=== PATIENT | female | born 1990 | race Caucasian/White ===

== ENCOUNTER → 2016-06-18 | Outpatient (CLI) | payer OTHER ==
[~2016-06-18] MED LIST: AMPH10TA2 PO; ATEN-173 PO; BCPILLS PO; CIPR-255 PO; CIPR0.3S OP; LAMO1TAB PO; LINA72CA PO; LITH300T2 PO; LTHSR/300 PO; MISCCAP80 PO; MTR600X PO; NORGTAB39 PO; ONDA4TAB10 SL; OXYC-57 PO; OXYC-643 PO; OXYC1TAB3 PO; OXYC5TAB PO; SACC250C11; SERT-234 PO; SPR28 PO; TOPI100T20 PO; TRAZ50TA35 PO
--- NOTE | 2016-06-18 15:02 | DIAGNOSTIC IMAGING REPORT ---
LUMBAR SPINE MRI HISTORY: LOW BACK PAIN TECHNIQUE: Multiplanar multisequence MRI of the lumbar spine was performed without the use of contrast. COMPARISON: None. FINDINGS: For the purpose of the report the L5-S1 disc space will be located on axial image 23 of 25. 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 Alignment is intact. No fractures identified. There is disc desiccation at L4-L5 and L5-S1 with mild disc space narrowing at L5-S1. The conus terminates at the L1 level. Mild facet degenerative changes at L4-5 and L5-S1. L1-L2: No significant central canal or neural foraminal narrowing. L2-L3: No significant central canal or neural foraminal narrowing. L3-L4: Small broad-based posterior disc bulge asymmetric to the left without significant central canal or neural foraminal narrowing. L4-L5: Small broad-based posterior disc bulge with a focal central annular tear. In conjunction with the facet hypertrophy this results in minimal central canal narrowing. No significant neural foraminal narrowing. L5-S1: Small right paracentral focal disc protrusion which abuts the transiting right S1 nerve root. This measures 8 x 5 mm. No significant central canal narrowing. Moderate left and mild right neural foraminal narrowing due to the disc bulge and facet hypertrophy. IMPRESSION: 1. Small right paracentral focal disc protrusion at L5-S1 which abuts but does not displace the transiting right S1 nerve root. There is also moderate left and mild right neural foraminal narrowing at this level. 2. Small broad-based posterior disc bulge at L4-5 with a focal central annular tear. This results in minimal central canal narrowing. 3. There is a 4.5 cm right adnexal lesion/cyst. This is likely ovarian. Follow-up pelvic ultrasound in 6-8 weeks is recommended to ensure resolution. 4. Mild levoscoliosis. Electronically signed by: Gary Peres M.D. 06/18/2016 3:01 PM Dictated Date/Time: 06/18/2016 2:52 PM
== END | disposition home or self-care (01) ==
LOC: C.MRI 13:40
PROVIDERS: ATTEND Obstetrics & Gynecology
DX: M54.42 Lumbago with sciatica, left side (principal); R93.8 Abnormal findings on diagnostic imaging of other specified body structures

== ENCOUNTER 2016-09-28 11:10 | Emergency (ER) | payer OTHER ==
[~2016-09-28] VITALS: Ht 167.6 cm; Wt 77.0 kg
[~2016-09-28 11:10] MED LIST changes: -BCPILLS PO; -CIPR-255 PO; -CIPR0.3S OP; -LINA72CA PO; -LTHSR/300 PO; -MISCCAP80 PO; -ONDA4TAB10 SL; -OXYC-57 PO; -OXYC-643 PO; -OXYC1TAB3 PO; -OXYC5TAB PO; -SACC250C11; -SPR28 PO; -TRAZ50TA35 PO
[2016-09-28 11:13] VITALS: TEMP 36.9; Ht 167.6 cm; Wt 77.0 kg
[2016-09-28] MEDS ORDERED: SODIUM CHLORIDE 0.9% 1000ML 1,000 ML IV STA ×2 (11:25→14:09)
[2016-09-28] MEDS ORDERED: KETOROLAC TROMETHAMINE 30 MG/ML VIAL IV STA (11:25)
[2016-09-28] MEDS ORDERED: ONDANSETRON INJ 2 MG/ML 2 ML VIAL IV STA (11:25)
--- NOTE | 2016-09-28 11:34 | EMERGENCY ROOM VISIT NOTE ---
History Report prepared by Ofelia: Milton Moreira Under the Supervision of: Dr. Roldan Sandoval D.O. First contact with patient: 11:19 Chief Complaint: VOMITING Stated Complaint: DIZZY,VOMITING,PAIN L SIDE History of Present Illness The patient is a 26 year old female who presents to the Emergency Room with complaints of waxing and waning left lower quadrant abdominal pain that the patient began three days prior to arrival. She describes the pain as a "cramping " sensation and claims that it radiates into her back. The patient also notes that she has been dizzy and nauseous over the past three days and has vomited multiple times. She states that she has been drinking increased fluids recently , and has not been urinating much at all. She has not noticed any unusual urine coloration when she has urinated. The patient has a history of ovarian cysts and ruptured ovaries. The right ruptured ovary was surgically repaired. The patient also has a history of bipolar disorder and Tourette's syndrome. She also had a cholecystectomy. 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 A total of 10 systems reviewed and were otherwise negative. Past Medical & Surgical Medical Problems: (1) Hemoperitoneum (2) Hemorrhage of right ovary (3) Ovarian cyst Family History Cancer Heart disease Kidney disease Kidney stones Seizures Social History Smoking Status: Never Smoker Drug Use: none Marital Status: single Occupation Status: student Current/Historical Medications Scheduled Amphetamine-Dextroamphetamine 10MG (Adderall 10MG), 10 MG PO QAM Atenolol (Tenormin), 25 MG PO QPM Ciprofloxacin Hcl (Cipro), 500 MG PO BID Lamotrigine (Lamictal Xr), 300 MG PO HS Deltana Carbonate (Deltana Carbonate), 900 MG PO HS Norgestimate-Ethinyl Estradiol (Ortho Tri-Cyclen Lo), 1 TAB PO DAILY Ondasetron Odt (Zofran Odt), 4 MG SL Q6H Sertraline (Zoloft), 100 MG PO HS Topiramate (Topamax), 100 MG PO HS Scheduled PRN Ibuprofen (Ibuprofen), 600 MG PO Q6H PRN for Pain Oxycodone Immediate Rel Tab (Roxicodone Ir), 1 TAB PO Q4H PRN for Severe Pain Allergies Coded Allergies: Amoxicillin (Verified Allergy, Unknown, rash, 09/28/16) Penicillins (Verified Allergy, Unknown, rash, 09/28/16) Sulfa Antibiotics (Verified Allergy, Unknown, rash, 09/28/16) Physical Exam Vital Signs Date Time Temp Pulse Resp B/P Pulse Ox O2 Delivery O2 Flow Rate FiO2 09/28/16 15:00 71 18 94/52 97 Room Air 09/28/16 14:23 107/60 09/28/16 14:08 73 18 81/42 96 Room Air 09/28/16 11:13 36.9 68 18 102/64 100 Room Air Physical Exam GENERAL: Patient is awake, alert, and in no acute distress. Patient is resting comfortably and showing no signs of anxiety EYES: The conjunctivae are clear. The pupils are round and reactive. EARS, NOSE, MOUTH AND THROAT: The nose is without any evidence of any deformity. Mucous membranes are moist tongue is midline NECK: The neck is nontender and supple. RESPIRATORY: Normal respiratory effort is noted there is no evidence of wheezing rhonchi or rales CARDIOVASCULAR: Regular rate and rhythm noted there no murmurs rubs or gallops normal S1 normal S2 GASTROINTESTINAL: The abdomen is soft. Bowel sounds are present in all quadrants. There is left lower quadrant tenderness to palpation. BACK: No midline tenderness or or step-off noted range of motion in flexion extension as well as rotation no signs of muscle spasm noted MUSCULOSKELETAL/EXTREMITIES: There is no evidence of gross deformity full range of motion is noted in the hips and shoulders SKIN: There is no obvious evidence of any rash. There are no petechiae, pallor or cyanosis noted. NEUROLOGIC: Patient is awake alert and oriented x3 strength is symmetric patellar reflexes are 2+ bilaterally Medical Decision & Procedures ER Provider Diagnostic Interpretation: Radiology results as stated below per my review and radiologist interpretation: KUB CLINICAL HISTORY: Abdominal pain and vomiting. COMPARISON STUDY: None. FINDINGS: There are cholecystectomy clips. The bowel gas pattern is normal. A few pelvic calcifications are indeterminate although statistically reflect phleboliths. IMPRESSION: No evidence of a bowel obstruction. Electronically signed by: Jan Gaming M.D. 09/28/2016 12:10 PM Dictated Date/Time: 09/28/2016 12:10 PM PELVIC ULTRASOUND CLINICAL HISTORY: Abdominal pain, nausea and vomiting. COMPARISON STUDY: Pelvic ultrasound February 16, 2016. TECHNIQUE: Transabdominal and transvaginal sonography of the pelvis was performed. FINDINGS: The uterus measures 7.7 x 5 x 3.4 cm and the endometrium measures 5 mm in thickness. There are no uterine abnormalities. The right ovary measures 4.7 x 5.3 x 2.5 cm and contains a 3.3 cm cyst. The left ovary measures 3 x 2.4 x 2.9 cm. Color flow is identified within each ovary. There was a small amount of fluid within the pelvis. IMPRESSION: 1. 3.3 cm right ovarian cyst. No sonographic evidence of ovarian torsion. 2. Normal sonographic appearance of the left ovary and uterus. 3. Small amount of fluid within the pelvis. Electronically signed by: Jan Gaming M.D. 09/28/2016 1:55 PM Dictated Date/Time: 09/28/2016 1:53 PM RENAL ULTRASONOGRAPHY CLINICAL HISTORY: Left flank pain. COMPARISON STUDY: No previous studies for comparison. FINDINGS: The right kidney measured 12.9 cm in length. The left kidney measures 11.6 cm in length. Both kidneys demonstrate increased echogenicity, a nonspecific finding suggesting medical renal disease. Please correlate with renal function tests. There is no hydronephrosis. No renal masses are visualized. No bladder masses are visualized. Bilateral renal jets were visualized. IMPRESSION: 1. No evidence of hydronephrosis. 2. No renal masses identified 3. Increased renal cortical echogenicity, a nonspecific finding suggesting medical renal disease Electronically signed by: Sha Powell M.D. 09/28/2016 1:53 PM Dictated Date/Time: 09/28/2016 1:52 PM Laboratory Results 09/28/16 11:32 Red Blood Count 4.70, Mean Corpuscular Volume 93.4, Mean Corpuscular Hemoglobin 30.2, Mean Corpuscular Hemoglobin Concent 32.3, Mean Platelet Volume 10.5, Neutrophils (%) (Auto) 71.4, Lymphocytes (%) (Auto) 19.0, Monocytes (%) (Auto) 6.1, Eosinophils (%) (Auto) 2.6, Basophils (%) (Auto) 0.6, Neutrophils # (Auto) 10.18, Lymphocytes # (Auto) 2.70, Monocytes # (Auto) 0.87, Eosinophils # (Auto) 0.37, Basophils # (Auto) 0.08 09/28/16 11:32 Test 09/28/16 11:32 09/28/16 11:40 White Blood Count 14.24 K/uL (4.8-10.8) Red Blood Count 4.70 M/uL (4.2-5.4) Hemoglobin 14.2 g/dL (12.0-16.0) Hematocrit 43.9 % (37-47) Mean Corpuscular Volume 93.4 fL (80-100) Mean Corpuscular Hemoglobin 30.2 pg (25-34) Mean Corpuscular Hemoglobin Concent 32.3 g/dl (32-36) Platelet Count 346 K/uL (130-400) Mean Platelet Volume 10.5 fL (7.4-10.4) Neutrophils (%) (Auto) 71.4 % Lymphocytes (%) (Auto) 19.0 % Monocytes (%) (Auto) 6.1 % Eosinophils (%) (Auto) 2.6 % Basophils (%) (Auto) 0.6 % Neutrophils # (Auto) 10.18 K/uL (1.4-6.5) Lymphocytes # (Auto) 2.70 K/uL (1.2-3.4) Monocytes # (Auto) 0.87 K/uL (0.11-0.59) Eosinophils # (Auto) 0.37 K/uL (0-0.5) Basophils # (Auto) 0.08 K/uL (0-0.2) RDW Standard Deviation 46.1 fL (36.4-46.3) RDW Coefficient of Variation 13.3 % (11.5-14.5) Immature Granulocyte % (Auto) 0.3 % Immature Granulocyte # (Auto) 0.04 K/uL (0.00-0.02) Anion Gap 6.0 mmol/L (3-11) Est Creatinine Clear Calc Drug Dose 87.7 ml/min Estimated GFR () 88.8 Estimated GFR (Non- 76.6 BUN/Creatinine Ratio 10.6 (10-20) Calcium Level 9.2 mg/dl (8.5-10.1) Total Bilirubin 0.2 mg/dl (0.2-1) Direct Bilirubin < 0.1 mg/dl (0-0.2) Aspartate Amino Transf (AST/SGOT) 6 U/L (15-37) Alanine Aminotransferase (ALT/SGPT) 12 U/L (12-78) Alkaline Phosphatase 48 U/L (45-117) Total Protein 7.2 gm/dl (6.4-8.2) Albumin 3.5 gm/dl (3.4-5.0) Lipase 218 U/L (73-393) Deltana Level 1.0 mMOL/L (0.6-1.2) Urine Color YELLOW Urine Appearance CLEAR (CLEAR) Urine pH 7.0 (4.5-7.5) Urine Specific [place] 1.013 (1.000-1.030) Urine Protein NEG (NEG) Urine Glucose (UA) NEG (NEG) Urine Ketones NEG (NEG) Urine Occult Blood NEG (NEG) Urine Nitrite NEG (NEG) Urine Bilirubin NEG (NEG) Urine Urobilinogen NEG (NEG) Urine Leukocyte Esterase MODERATE (NEG) Urine WBC (Auto) 10-30 /hpf (0-5) Urine RBC (Auto) 0-4 /hpf (0-4) Urine Hyaline Casts (Auto) 1-5 /lpf (0-5) Urine Epithelial Cells (Auto) >30 /lpf (0-5) Urine Bacteria (Auto) 1+ (NEG) Urine Test NEG (NEG) Laboratory results per my review. Medications Administered Medications (Trade) Dose Ordered Sig/Hailey Route Start Time Stop Time Status Last Admin Dose Admin Ketorolac Tromethamine 30 mg 30 mg NOW STAT IV 09/28/16 11:25 09/28/16 11:26 DC 09/28/16 11:34 30 MG Sodium Chloride (Nss 1000ml) 1,000 ml @ 999 mls/hr Q1H1M STAT IV 09/28/16 11:25 09/28/16 12:25 DC 09/28/16 11:35 999 MLS/HR Ondansetron HCl 4 mg 4 mg NOW STAT IV 09/28/16 11:25 09/28/16 11:26 DC 09/28/16 11:34 4 MG Sodium Chloride (Nss 1000ml) 1,000 ml @ 999 mls/hr Q1H1M STAT IV 09/28/16 14:09 09/28/16 15:09 DC 09/28/16 14:09 999 MLS/HR Ciprofloxacin (Cipro Tab) 500 mg NOW STAT PO 09/28/16 14:37 09/28/16 14:38 DC 09/28/16 14:59 500 MG ED Course 1123: The patient was evaluated in room A12. A complete history and physical examination were performed. 1125: Ordered Zofran 4 mg IV, Sodium Chloride 1000 mL @ 999 mL/hr IV, Toradol 30 mg IV. 1235: I reevaluated the patient at this time. She notes that she is feeling dizzy now. 1409: Ordered Sodium Chloride 1000 mL @ 999 mL/hr IV. 1437: Ordered Ciprofloxacin 500 mg PO. 1443: Upon reevaluation, the patient is resting in bed. I discussed the results and treatment plan with her. She verbalized agreement of the treatment plan. The patient was discharged home. Medical Decision The patient's history was concerning for abdominal pain. Differential diagnosis: Etiologies such as appendicitis, diverticulitis, PUD, biliary pathology, UTI, pancreatitis, obstruction, mesenteric ischemia, aortic pathology, infections, inflammatory bowel disease, renal colic, as well as others were entertained. The patient is a 26-year-old female who presented to the emergency department for an evaluation of left-sided abdominal pain. The patient had significant left lower quadrant pain but she did not have specific guarding or rigidity. She was sent to the emergency department for possible ovarian cyst. I discussed the patient's laboratory and radiographic studies with her. Ultrasound did not show a definite left-sided abnormality but did show a right-sided ovarian cyst. She did not have a physical exam consistent with an acute surgical abdomen but did have an elevated white blood cell count as well as possible urinary tract infection. This reason she was started on antibiotic but a CT the abdomen and pelvis was obtained to ensure there was no other intra-abdominal infectious process. The patient was treated with IV fluids IV pain medicine and IV antiemetics. On subsequent reevaluation she was feeling much better. She was encouraged to rest and avoid any strenuous activity. She was encouraged to continue all medications as prescribed and follow-up with her primary care physician. Otherwise she was encouraged to return to the emergency apartment immediately if symptoms change worsen or the need arises. Impression Primary Impression: LLQ abdominal pain Additional Impressions: Ovarian cyst UTI (urinary tract infection) Scribe Attestation The scribe's documentation has been prepared under my direction and personally reviewed by me in its entirety. I confirm that the note above accurately reflects all work, treatment, procedures, and medical decision making performed by me. Departure Information Dispostion Home / Self-Care Prescriptions Oxycodone Immediate Rel Tab (ROXICODONE IR) 5 Mg Tab 1 TAB PO Q4H Y for Severe Pain, #20 TAB Prov: Roldan Sandoval, DO 09/28/16 Ondasetron Odt (ZOFRAN ODT) 4 Mg Tab 4 MG SL Q6H for Nausea, #20 TAB Prov: Roldan Sandoval, DO 09/28/16 Ciprofloxacin Hcl (CIPRO) 500 Mg Tab 500 MG PO BID, #14 TAB Prov: Roldan Sandoval, DO 09/28/16 Referrals No Doctor, Assigned (PCP) Forms HOME CARE DOCUMENTATION FORM, IMPORTANT VISIT INFORMATION Patient Instructions My [facility] Additional Instructions Call your family to schedule a follow-up appointment for this week. Drink plenty clear liquids. Avoid any strenuous activity. Continue all medications as prescribed. Continue using Motrin and Tylenol as directed for mild pain. Problem Qualifiers
[2016-09-28 11:55] LABS: HEMATOCRIT 43.9 % (37-47); MEAN CELL VOLUME 93.4 fL (80-100); MEAN CORPUSCULAR HEMOGLOBIN 30.2 pg (25-34); MEAN CORPUSCULAR HGB CONC 32.3 g/dl (32-36); MEAN PLATELET VOLUME 10.5 fL (7.4-10.4); PLATELET COUNT 346 K/uL (130-400); WHITE BLOOD COUNT 14.24 K/uL (4.8-10.8)
[2016-09-28 11:58] LABS: MANUAL MICROSCOPIC REQUIRED? NO; REVIEW REQ? NO; URINE APPEARANCE CLEAR (CLEAR); URINE BILIRUBIN NEG (NEG); URINE COLOR YELLOW; URINE EPITHELIAL CELL AUTO >30 /lpf (0-5); URINE NITRITE NEG (NEG); URINE SPECIFIC GRAVITY 1.013 (1.000-1.030); UROBILINOGEN NEG (NEG)
--- NOTE | 2016-09-28 12:12 | DIAGNOSTIC IMAGING REPORT ---
KUB CLINICAL HISTORY: Abdominal pain and vomiting. COMPARISON STUDY: None. FINDINGS: There are cholecystectomy clips. The bowel gas pattern is normal. A few pelvic calcifications are indeterminate although statistically reflect phleboliths. IMPRESSION: No evidence of a bowel obstruction. Electronically signed by: Jan Gaming M.D. 09/28/2016 12:10 PM Dictated Date/Time: 09/28/2016 12:10 PM
[2016-09-28 12:16] LABS: ALT/SGPT 12 U/L (12-78); AST/SGOT 6 U/L (15-37); BLOOD UREA NITROGEN 11 mg/dl (7-18); BUN/CREATININE RATIO 10.6 (10-20); CALCIUM 9.2 mg/dl (8.5-10.1); CARBON DIOXIDE 25 mmol/L (21-32); CHLORIDE 112 mmol/L (98-107); GLUCOSE 80 mg/dl (70-99); POTASSIUM 3.9 mmol/L (3.5-5.1); SODIUM 143 mmol/L (136-145)
[2016-09-28 12:17] LABS: BASO % 0.6 %; BASO ABS # 0.08 K/uL (0-0.2); COMPLETE YES; EOS % 2.6 %; IG% 0.3 %; MONO % 6.1 %; NEUT % 71.4 %
[2016-09-28 12:19] LABS: ALKALINE PHOSPHATASE 48 U/L (45-117)
--- NOTE | 2016-09-28 13:55 | DIAGNOSTIC IMAGING REPORT ---
RENAL ULTRASONOGRAPHY CLINICAL HISTORY: Left flank pain. COMPARISON STUDY: No previous studies for comparison. FINDINGS: The right kidney measured 12.9 cm in length. The left kidney measures 11.6 cm in length. Both kidneys demonstrate increased echogenicity, a nonspecific finding suggesting medical renal disease. Please correlate with renal function tests. There is no hydronephrosis. No renal masses are visualized. No bladder masses are visualized. Bilateral renal jets were visualized. IMPRESSION: 1. No evidence of hydronephrosis. 2. No renal masses identified 3. Increased renal cortical echogenicity, a nonspecific finding suggesting medical renal disease Electronically signed by: Sha Powell M.D. 09/28/2016 1:53 PM Dictated Date/Time: 09/28/2016 1:52 PM
--- NOTE | 2016-09-28 13:56 | DIAGNOSTIC IMAGING REPORT ---
PELVIC ULTRASOUND CLINICAL HISTORY: Abdominal pain, nausea and vomiting. COMPARISON STUDY: Pelvic ultrasound February 16, 2016. TECHNIQUE: Transabdominal and transvaginal sonography of the pelvis was performed. FINDINGS: The uterus measures 7.7 x 5 x 3.4 cm and the endometrium measures 5 mm in thickness. There are no uterine abnormalities. The right ovary measures 4.7 x 5.3 x 2.5 cm and contains a 3.3 cm cyst. The left ovary measures 3 x 2.4 x 2.9 cm. Color flow is identified within each ovary. There was a small amount of fluid within the pelvis. IMPRESSION: 1. 3.3 cm right ovarian cyst. No sonographic evidence of ovarian torsion. 2. Normal sonographic appearance of the left ovary and uterus. 3. Small amount of fluid within the pelvis. Electronically signed by: Jan Gaming M.D. 09/28/2016 1:55 PM Dictated Date/Time: 09/28/2016 1:53 PM
[2016-09-28] MEDS ORDERED: OPTIRAY 320 IV PRN (14:15)
--- NOTE | 2016-09-28 14:33 | DIAGNOSTIC IMAGING REPORT ---
CT OF THE ABDOMEN AND PELVIS WITH CONTRAST CLINICAL HISTORY: Left lower quadrant pain, vomiting. COMPARISON STUDY: Renal and pelvic ultrasounds performed earlier today. TECHNIQUE: Following IV administration of 93 mL of Optiray-320, axial images of the abdomen and pelvis were obtained from the lung bases to the proximal femurs. Images were reviewed in the axial, sagittal, and coronal planes. IV contrast was administered without complication. CT DOSE: 353.01 mGy.cm FINDINGS: Visualized portions of the lower chest demonstrate trace bilateral pleural effusions. No pneumatosis, free air or portal venous gas is present. The liver, spleen, adrenal glands, kidneys and pancreas are unremarkable with the exception of small hypodense subcentimeter bilateral renal lesions which likely reflect cysts. There is no hydronephrosis. The caliber and wall thickness of small and large bowel are normal. The appendix is normal. There is no lymphadenopathy. 3.4 cm right ovarian cyst is noted. There is trace fluid within the pelvis. There is no lymphadenopathy. Skeletal structures are unremarkable. IMPRESSION: 1. No acute process within the abdomen or pelvis. 2. No biliary ductal dilatation status post cholecystectomy. 3. Normal appendix. 4. 3.4 cm right ovarian cyst. Electronically signed by: Jan Gaming M.D. 09/28/2016 2:32 PM Dictated Date/Time: 09/28/2016 2:27 PM
[2016-09-28] MEDS ORDERED: CIPROFLOXACIN 500 MG TAB PO STA (14:37)
[2016-09-28] MEDS ORDERED: ONDA4TAB10 SL (14:45)
[2016-09-28] MEDS ORDERED: CIPR-255 PO (14:45)
[2016-09-28] MEDS ORDERED: OXYC1TAB3 PO (14:45)
[2016-09-28 15:00] VITALS: BP 94/52; PULSE 71; O2SAT 97
[2016-10-26] MEDS ORDERED: OXYC-643 PO (13:44)
[2016-10-26] MEDS ORDERED: SACC250C11 (13:56)
[2016-10-30] MEDS ORDERED: ONDA4TAB10 SL (08:52)
[2016-10-30] MEDS ORDERED: OXYC-643 PO (08:52)
== END 2016-09-28 15:02 | disposition home or self-care (01) ==
LOC: C.EDB 11:11 → C.EDA 15:02
DX: R10.32 Left lower quadrant pain (principal); N83.209 Unspecified ovarian cyst, unspecified side; N39.0 Urinary tract infection, site not specified; Z79.899 Other long term (current) drug therapy; Z88.0 Allergy status to penicillin; Z88.1 Allergy status to other antibiotic agents; Z88.2 Allergy status to sulfonamides; Z80.9 Family history of malignant neoplasm, unspecified; Z82.49 Family history of ischemic heart disease and other diseases of the circulatory system; Z84.1 Family history of disorders of kidney and ureter; Z82.0 Family history of epilepsy and other diseases of the nervous system

== ENCOUNTER → 2016-10-30 | Day surgery (SDC) | payer OTHER ==
[2016-10-26 13:48] VITALS: BMI 27.0
--- NOTE | 2016-10-26 14:20 | PAT Medication Instructions ---
Service Date Oct 26, 2016. Current Home Medication List Atenolol (Tenormin), 25 MG PO QPM Ibuprofen (Ibuprofen), 600 MG PO Q6H PRN for Pain Lamotrigine (Lamictal Xr), 300 MG PO HS [place] Carbonate ([place] Carbonate), 900 MG PO HS Norgestimate-Ethinyl Estradiol (Ortho Tri-Cyclen Lo), 1 TAB PO QPM Ondasetron Odt (Zofran Odt), 4 MG SL Q6H Oxycodone/Acetaminophen 5MG/325MG (Oxycodone/Acetaminophen 5MG/325MG), 1 TABLET PO Q6H PRN for Pain Saccharomyces Boulardii (Probiotic), Unknown Dose QAM Sertraline (Zoloft), 100 MG PO HS Topiramate (Topamax), 100 MG PO HS Medication Instructions For Your Scheduled Surgery - Hold the following medications prior to surgery per surgeon's instructions: Ibuprofen (Ibuprofen), 600 MG PO Q6H PRN for Pain - Hold the following medications the morning of surgery: Saccharomyces Boulardii (Probiotic), Unknown Dose QAM - Take the following medications the morning of surgery with a sip of water OTHERWISE NOTHING TO EAT OR DRINK AFTER MIDNIGHT: Ondasetron Odt (Zofran Odt), 4 MG SL Q6H Oxycodone/Acetaminophen 5MG/325MG (Oxycodone/Acetaminophen 5MG/325MG), 1 TABLET PO Q6H PRN for Pain (may take if needed up to 4 hours prior to surgery) - Take the following medications as scheduled the night before surgery: Sertraline (Zoloft), 100 MG PO HS Topiramate (Topamax), 100 MG PO HS Atenolol (Tenormin), 25 MG PO QPM Lamotrigine (Lamictal Xr), 300 MG PO HS [place] Carbonate ([place] Carbonate), 900 MG PO HS Norgestimate-Ethinyl Estradiol (Ortho Tri-Cyclen Lo), 1 TAB PO QPM Ondasetron Odt (Zofran Odt), 4 MG SL Q6H Oxycodone/Acetaminophen 5MG/325MG (Oxycodone/Acetaminophen 5MG/325MG), 1 TABLET PO Q6H PRN for Pain If you have any questions please call us at [phone] or [phone] or [phone]
[2016-10-26 14:48] LABS: BASO % 0.7 %; BASO ABS # 0.07 K/uL (0-0.2); COMPLETE YES; EOS % 3.3 %; IG% 0.2 %; LYMPH % 23.4 %; LYMPH ABS # 2.47 K/uL (1.2-3.4); MEAN CELL VOLUME 92.7 fL (80-100); MEAN CORPUSCULAR HEMOGLOBIN 29.3 pg (25-34); MEAN CORPUSCULAR HGB CONC 31.6 g/dl (32-36); MEAN PLATELET VOLUME 10.1 fL (7.4-10.4); MONO % 6.5 %; NEUT % 65.9 %; PLATELET COUNT 339 K/uL (130-400); WHITE BLOOD COUNT 10.56 K/uL (4.8-10.8)
[2016-10-30] VITALS (7 sets, daily range): BP systolic 70–100; BP diastolic 36–60; PULSE 62–84; TEMP 37–37.3; O2SAT 98–100; Ht 167.6 cm; Wt 77.0 kg
[~2016-10-30] VITALS: Ht 167.6 cm; Wt 77.0 kg
[~2016-10-30] MED LIST changes: +ACETAMINOPHEN 325 MG TAB PO PRN; +ACETAMINOPHEN 650 MG SUPP PR PRN; -AMPH10TA2 PO; +BCPILLS PO; +BUPIVACAINE 0.5 % 5 MG/1 ML MPF 30ML VIAL ONE; +CIPR0.3S OP; +DEXAMETHASONE SOD INJ 4 MG/ML VIAL ONE; +DiphenhydrAMINE HCL 50 MG/ML VIAL IV PRN; +DiphenhydrAMINE HCL 50 MG/ML VIAL ONE; +FENTANYL CITRATE INJ 50 MCG/1 ML 2 ML VIAL IV PRN; +FENTANYL CITRATE INJ 50 MCG/1 ML 2 ML VIAL ONE; +GLYCOPYRROLATE INJ 0.2 MG/ML VIAL ONE; +IBUPROFEN 200 MG TAB PO PRN; +IBUPROFEN 600 MG TAB PO PRN; +KETOROLAC TROMETHAMINE 30 MG/ML VIAL IV. PRN; +KETOROLAC TROMETHAMINE 30 MG/ML VIAL ONE; +LACTATED RINGER'S 1000ML 1,000 ML IV PRN; +LACTATED RINGER'S 1000ML 1,000 ML IV SCH; +LIDOCAINE HCL 2% 2 ML VIAL (20MG/ML) ONE; +LINA72CA PO; +LTHSR/300 PO; +METHYLENE BLUE 0.5% 10 ML VIAL ONE; +METOCLOPRAMIDE HCL INJ 5 MG/ML 2 ML VIAL ONE; +MIDAZOLAM HCL 1 MG/ML 2ML VIAL ONE; +MISCCAP80 PO; +MoRPHine SULFATE 2 MG/ML CARP IV PRN; +MoRPHine SULFATE 4 MG/ML 1 ML CARP\\VIAL IV PRN; +NEOSTIGMINE METHYLSULFATE 5 MG/5 ML SYR ONE; +ONDA4TAB10 SL; +ONDANSETRON INJ 2 MG/ML 2 ML VIAL IV PRN; +ONDANSETRON INJ 2 MG/ML 2 ML VIAL ONE; +OXYC-57 PO; +OXYC-643 PO; +OXYCODONE/ACETAMINOPHEN 5-325 TAB PO PRN; +PROPOFOL IV EMULSION 10 MG/ML 20 ML VIAL IV ONE; +RANITIDINE HCL 25 MG/ML INJ ONE; +ROCURONIUM BROMIDE 10 MG/ML 5 ML VIAL ONE; +SACC250C11; +SCOPOLAMINE 1.5 MG TDSY TD ONE; +SPR28 PO; +TRAZ50TA35 PO
--- NOTE | 2016-10-30 07:22 | History & Physical Bridge Note ---
H&P Re-Evaluation Bridge Note: I have examined the patient, reviewed the History & Physical and in the interval since the performance of the History & Physical I have noted the following changes of clinical significance: After further discussion, will only do cystectomy on the right ovary. WE will NOT be removing the right ovary if there is not cyst on it and the findings are negative. If the ovary is significantly diseased and I feel it is in her best interest to remove, we can do so.
--- NOTE | 2016-10-30 08:53 | Discharge Instructions ---
Discharge Instructions Date of Service Oct 30, 2016. Visit Reason for Visit: Female Pelvic Pain Discharge Discharge Diagnosis / Problem: s/p laproscopic right ovarian cystectomy Discharge Goals Goal(s): Specific goals Activity Recommendations Activity Limitations: per Instructions/Follow-up section Anesthesia . Post Anesthesia Instructions: If you have had General Anesthesia or IV Sedation: * Do not drive today. * Resume driving when surgeon permits. * Do not make important decisions or sign legal documents today. * Call surgeon for: 1. Temperature elevations greater than 101 degrees F. 2. Uncontrollable pain. 3. Excessive bleeding. 4. Persistent nausea and vomiting. 5. Medication intolerance (nausea, vomiting or rash). * For nausea and vomiting use only clear liquids such as: tea, soda, bouillon until nausea subsides, then gradually increase diet as tolerated. * If you have any concerns or questions, call your surgeon's office. If physician is unavailable and it is an emergency, call 911 or go to the nearest emergency room. . Instructions / Follow-Up Instructions / Follow-Up ACTIVITY RECOMMENDATIONS: * Rest the first 2-3 days. You should be back to your normal activity levels by day 3. * No heavy lifting for 2 weeks. * No intercourse, tampons or douching for 1-2 weeks. * You may shower the next day. * Do not drive anytime that you are taking narcotic pain medicines. RETURN TO SCHOOL/WORK: * May return to school or work after 2-3 days. DIET: Nausea may occur in the immediate post-operative period. If so, take clear liquids such as tea, bouillon, apple juice until all nausea has subsided, then resume usual diet. MEDICATIONS: Resume previous medications unless instructed otherwise by your surgeon. Ibuprofen 200mg 2-3 tablets every 4-6 hours as needed -- OR -- Aleve 2 tablets every 8-12 hours as needed for post-operative discomfort Medications are over the counter. Tylenol may be used if above medications are contraindicated or not preferred. Medication should be taken with food or milk. Do not take on an empty stomach. SPECIAL CARE INSTRUCTIONS: * Check temperature twice daily for one week. report any elevation over 101 degrees. * You may experience some vagina spotting and/or bleeding. This is normal for 1 -2 weeks and should not be heavier than a normal period. If it is unusual in amount, call your physician. * Post-operative discomfort may consist of a sore throat, a "bloated" feeling and pain in the shoulders. these are normal symptoms, which usually only last for 2-3 days. * Remove band-aids tomorrow and shower. There is no need to replace band-aids unless there is drainage or discomfort. FOLLOW UP VISIT: Call your doctor's office for a post-operative 2 week visit if not already scheduled. Diet Recommendations Recommended Home Diet: no limitations, resume previous diet Procedures Procedures Performed: Right Ovarian Cystectomy Robot Assist Pending Studies Studies pending at discharge: no Medical Emergencies . Who to Call and When: Medical Emergencies: If at any time you feel your situation is an emergency, please call 911 immediately. . Non-Emergent Contact Non-Emergency issues call your: Business Insight And Analytics Manager . . "Provider Documentation" section prepared by Regina Rivera. . [place] Drug Monitoring Program Search Results: patient reviewed within database, no issues identified
--- NOTE | 2016-10-30 08:54 | [facility] Post Operative Brief Note ---
Immediate Operative Summary Operative Date Oct 30, 2016. Pre-Operative Diagnosis Right ovarian cyst; Pelvic pain Post-Operative Diagnosis Same as preop Procedure(s) Performed Right Ovarian Cystectomy Robot Assist Surgeon Dr. Rivera Warehouse Shipping Clerk Surgeon(s) None Estimated Blood Loss 20 ml Findings simple appearing right cyst, about 5cm. nl tubes, nl left ovary. nl uterus. no evidence of endometriosis Fluids (cc crystalloids) 1000cc Specimens A. Right Ovarian Cyst Wall Drains none Anesthesia gett Disposition Recovery Room / PACU
--- NOTE | 2016-10-30 09:24 | Anesthesiology Progress Note ---
Anesthesia Post Op Note Date & Time Oct 30, 2016 at 09:23 Vital Signs Pain Intensity: 0 Vital Signs Past 12 Hours Date Time Temp Pulse Resp B/P (MAP) Pulse Ox O2 Delivery O2 Flow Rate FiO2 10/30/16 09:05 81 22 105/71 99 Mask 10 10/30/16 08:55 86 22 109/71 100 Mask 10 10/30/16 08:49 36.4 98 14 118/62 100 Mask 10 10/30/16 06:01 37.3 68 18 100/60 (73) 98 Room Air Notes Mental Status: alert / awake / arousable, participated in evaluation Pt Amnestic to Procedure: Yes Nausea / Vomiting: adequately controlled Pain: adequately controlled Airway Patency, RR, SpO2: stable & adequate BP & HR: stable & adequate Hydration State: stable & adequate Anesthetic Complications: no major complications apparent Pt doing very well.
--- NOTE | 2016-10-30 09:27 | OPERATIVE REPORT ---
DATE OF OPERATION: 10/30/2016 PREOPERATIVE DIAGNOSES: 1. Persistent right ovarian cyst. 2. Right lower quadrant pain. POSTOPERATIVE DIAGNOSES: Same. PROCEDURE: Laparoscopic right ovarian cystectomy with da Rocael assist. SURGEON: Regina Rivera MD. ANESTHESIA: General per endotracheal tube. ESTIMATED BLOOD LOSS: 20 mL FLUIDS: 1000 mL. URINE OUTPUT: 100 mL of clear yellow urine drained from the bladder at the end of the procedure. INDICATIONS: The patient is a 26-year-old 0 with a persistent right ovarian cyst that has waxed and waned in size and a right lower quadrant pain. She presents for removal of cyst. FINDINGS: At the time of surgery, 5 cm right simple appearing cyst which was ruptured for clear fluid. Cyst wall appeared smooth without excrescences or papillations. The right ovary was otherwise normal; left ovary, normal; tubes, normal; uterus, normal; cul-de-sac, normal; bilateral pelvic sidewalls, normal; anterior cul-de-sac, normal. No evidence of endometriosis. COMPLICATIONS: None. DRAINS: None. DISPOSITION: To recovery room in stable condition. PROCEDURE: The patient was taken to the operating room where she was identified verbally and by bracelet. She was placed in dorsal supine position where general anesthesia was induced without difficulty. She was then placed in dorsal lithotomy position in [facility]. Her arms were carefully tucked at her side. Her chest was protected, tucked and the waiter/waitress head was placed. She was prepped and draped in normal sterile fashion. Timeout was held, identifying correct patient, procedure and positioning. There was no need for preoperative antibiotics and allergies were reviewed. Attention was turned to the perineum where a Santos catheter was placed. A speculum was placed in the vagina. The anterior lip of the cervix was grasped with single tooth tenaculum. Burch uterine manipulator was placed into the cervix and the speculum was removed. Gloves were then changed. Attention was then turned to the abdomen where an infraumbilical incision was made with the knife. This was stretched with a snap. The Veress needle was placed through with an opening pressure of 5 mmHg. The abdomen was insufflated with approximately 3 liters of carbon dioxide gas. A 12 mm trocar was placed under direct visualization and intra-abdominal placement was confirmed. The patient was then placed into Trendelenburg position and two 8 mm da Rocael trocars were placed under direct visualization in the right and left lower quadrants. Evaluation of the pelvis was as noted above. Of note, there was a 5 cm simple-appearing right ovarian cyst and there was no evidence of endometriosis. The da Rocael creative assistant device was hooked with the patient and the surgeon proceeded to the console. Then using the electrocautery and traction /countertraction, an incision was made on the ovarian cortex. The ovarian cortex was undermined with scissors. Unfortunately, the cyst was ruptured during the course of this releasing clear fluid. Then with traction and countertraction, the cyst wall was removed from the ovary and removed from the patient. A little bit of oozing at the ovarian cortex was attended to with Bovie electrocautery until hemostasis was assured and the procedure was terminated. The gas was released from the abdomen. The trocars were removed. A deep fascial stitch of 0 Vicryl was placed at the infraumbilical incision. All the skin incisions were closed with 4-0 Vicryl in a subcuticular fashion. The incisions were infiltrated with 0.5% Marcaine and treated with Dermabond. The instruments were removed from the vagina and hemostasis was noted to be excellent. The procedure was thus terminated. All sponge, lap and needle counts were correct x2. The patient tolerated the procedure well and was taken to the recovery room in stable condition. I attest to the content of the Intraoperative Record and any orders documented therein. Any exceptions are noted below. ALVARO
== END | disposition home or self-care (01) ==
LOC: C.ACU 05:17
PROVIDERS: ATTEND Obstetrics & Gynecology
DX: N83.01 Follicular cyst of right ovary (principal); R10.2 Pelvic and perineal pain; F30.9 Manic episode, unspecified; F17.200 Nicotine dependence, unspecified, uncomplicated
CPT/HCPCS: 58662; S2900

== ENCOUNTER 2016-12-27 19:50 | Emergency (ER) | payer OTHER ==
[~2016-12-27] VITALS: Ht 167.6 cm; Wt 78.0 kg
[~2016-12-27 19:50] MED LIST changes: -ACETAMINOPHEN 325 MG TAB PO PRN; -ACETAMINOPHEN 650 MG SUPP PR PRN; -BCPILLS PO; -BUPIVACAINE 0.5 % 5 MG/1 ML MPF 30ML VIAL ONE; -CIPR0.3S OP; -DEXAMETHASONE SOD INJ 4 MG/ML VIAL ONE; -DiphenhydrAMINE HCL 50 MG/ML VIAL IV PRN; -DiphenhydrAMINE HCL 50 MG/ML VIAL ONE; -FENTANYL CITRATE INJ 50 MCG/1 ML 2 ML VIAL IV PRN; -FENTANYL CITRATE INJ 50 MCG/1 ML 2 ML VIAL ONE; -GLYCOPYRROLATE INJ 0.2 MG/ML VIAL ONE; -IBUPROFEN 200 MG TAB PO PRN; -IBUPROFEN 600 MG TAB PO PRN; -KETOROLAC TROMETHAMINE 30 MG/ML VIAL IV. PRN; -KETOROLAC TROMETHAMINE 30 MG/ML VIAL ONE; -LACTATED RINGER'S 1000ML 1,000 ML IV PRN; -LACTATED RINGER'S 1000ML 1,000 ML IV SCH; -LIDOCAINE HCL 2% 2 ML VIAL (20MG/ML) ONE; -LINA72CA PO; -LTHSR/300 PO; -METHYLENE BLUE 0.5% 10 ML VIAL ONE; -METOCLOPRAMIDE HCL INJ 5 MG/ML 2 ML VIAL ONE; -MIDAZOLAM HCL 1 MG/ML 2ML VIAL ONE; -MISCCAP80 PO; -MoRPHine SULFATE 2 MG/ML CARP IV PRN; -MoRPHine SULFATE 4 MG/ML 1 ML CARP\\VIAL IV PRN; -NEOSTIGMINE METHYLSULFATE 5 MG/5 ML SYR ONE; -ONDANSETRON INJ 2 MG/ML 2 ML VIAL IV PRN; -ONDANSETRON INJ 2 MG/ML 2 ML VIAL ONE; -OXYC-57 PO; -OXYCODONE/ACETAMINOPHEN 5-325 TAB PO PRN; -PROPOFOL IV EMULSION 10 MG/ML 20 ML VIAL IV ONE; -RANITIDINE HCL 25 MG/ML INJ ONE; -ROCURONIUM BROMIDE 10 MG/ML 5 ML VIAL ONE; -SCOPOLAMINE 1.5 MG TDSY TD ONE; -SPR28 PO; -TRAZ50TA35 PO
[2016-12-27 19:54] VITALS: TEMP 36.5; Ht 167.6 cm; Wt 78.0 kg
[2016-12-27] MEDS ORDERED: TOPI100T20 PO (20:27)
[2016-12-27] MEDS ORDERED: MISCCAP80 PO (20:27)
[2016-12-27] MEDS ORDERED: TRAZ50TA35 PO (20:27)
[2016-12-27] MEDS ORDERED: LINA72CA PO (20:27)
[2016-12-27] MEDS ORDERED: LTHSR/300 PO (20:27)
[2016-12-27] MEDS ORDERED: SPR28 PO (20:27)
[2016-12-27] MEDS ORDERED: SERT-234 PO (20:27)
[2016-12-27] MEDS ORDERED: ONDA4TAB10 SL (20:27)
[2016-12-27] MEDS ORDERED: ATEN-173 PO (20:27)
[2016-12-27] MEDS ORDERED: LAMO1TAB PO (20:27)
[2016-12-27] MEDS ORDERED: PROPARACAINE HCL 0.5% OP SOLN 15 ML BTL OP STA (20:39)
[2016-12-27] MEDS ORDERED: PERCOCET HOME PACK PO STA (21:20)
[2016-12-27] MEDS ORDERED: CIPROFLOXACIN HCL 0.3% OP SOLN 2.5 ML BTL OP STA (21:20)
[2016-12-27] MEDS ORDERED: CIPR0.3S OP (21:27)
[2016-12-27] MEDS ORDERED: OXYC-57 PO (21:27)
--- NOTE | 2016-12-27 21:28 | EMERGENCY ROOM VISIT NOTE ---
History First contact with patient: 20:19 Chief Complaint: EYE ASSESSMENT Stated Complaint: INJURED L EYE History of Present Illness The patient is a 26 year old female who presents to the Emergency Room via private vehicle with complaints of "injured left eye ankle. The patient states that she took trazodone for the first time last evening, and feels as though she dropped her contact him and put back in her left eye. She is question whether or not she scratched her left eye when doing this. She states that she woke up this morning, and her eye was very painful. She states that she is tried washing it out with Visine without relief. She has light sensitivity and rates the pain as a 5/10 at rest, and a 10/10 with light. She is unsure of her tetanus status. Review of Systems A complete 6-point Review of Systems was discussed with the patient, with pertinent positives and negatives listed in the History of Present Illness. All remaining Review of Systems questions can be considered negative unless otherwise specified. Past Medical/Surgical History Medical Problems: (1) Hemoperitoneum (2) Hemorrhage of right ovary (3) Ovarian cyst Family History Cancer Heart disease Kidney disease Kidney stones Seizures Social History Smoking Status: Never Smoker Drug Use: none Marital Status: single Occupation Status: student Current/Historical Medications Scheduled Atenolol (Tenormin), 25 MG PO DAILY Ciprofloxacin Hcl (Ophth) (Ciloxan Oph), 1 DROPS OP DIRECTED Ethinyl Estrad/Norgestimate (Sprintec 28), 1 TAB PO DAILY Lamotrigine (Lamictal Xr), 300 MG PO HS Linaclotide (Linzess), 72 MCG PO QPM Bostwick Carbonate (Bostwick Carbonate), 900 MG PO HS Probiotic Product (Probiotic), 1 CAP PO DAILY Sertraline (Zoloft), 100 MG PO HS Topiramate (Topamax), 100 MG PO HS Scheduled PRN Ondasetron Odt (Zofran Odt), 4 MG SL Q6H PRN for Nausea Oxycodone/Acetaminophen 5MG/325MG (Percocet 5MG/325MG), 1 TAB PO Q6 PRN for Pain Trazodone Hcl (Trazodone), 50-100 MG PO HS PRN for Sleep Physical Exam Vital Signs Date Time Temp Pulse Resp B/P (MAP) Pulse Ox O2 Delivery O2 Flow Rate FiO2 12/27/16 21:33 74 20 126/72 98 12/27/16 19:54 36.5 60 16 114/66 100 Room Air Right Eye Acuity: 20/75 Left Eye Acuity: 20/75 Physical Exam VITAL SIGNS - Vital signs and nursing notes were reviewed. Afebrile, normotensive, non-tachycardic and is saturating well on room air at 100%. GENERAL -26-year-old female appearing her stated age. Communicates well with provider and answers questions appropriately. HEAD - Normocephalic, Atraumatic. No Guzman's Sign or Raccoon's Eyes. No depressed skull fractures palpable. EYES - PERRL with EOMI bilaterally. Sclera without noticeable foreign body or excoriations. Slight bulbar conjunctival injection noted in the right eye. Without subconjunctival hemorrhage. Palpebral conjunctiva pink and moist with no injection or discharge noted. Brief fundoscopic exam demonstrates no AV- nicking, cotton wool spots, or flame hemorrhages. Slit lamp examination performed as further described. EARS - No deformities of external structures noted on gross examination bilaterally. Handle of malleus, umbo, cone of light, pars tensa/flaccid all easily visualized. NOSE - Midline and without cyanosis. Without discharge. MOUTH/OROPHARYNX - Without perioral cyanosis. Tongue midline with equal elevation of palate bilaterally. No tonsillar hypertrophy, erythema, or exudates noted. Fair dentition noted. NECK - FROM assessed. No cervical lymphadenopathy noted. Slit Lamp Examination was performed of the right eye(s). Alcaine drops were applied to the affected eye(s) for proper anesthetization. The affected eye(s) were stained with Fluorescein stain to precipitate adequate visualization of any conjunctival/scleral excoriations or ulcers. The patient's face was comfortably rested on the chin guard of the slit lamp apparatus. The lights were dimmed and the affected eye(s) were thoroughly examined under microscopy using the blue light. Slight uptake was present in the inferior region consistent with that of a corneal abrasion. Additionally, the eye(s) were examined under microscopy using the regular light. Close examination revealed no abnormality. Patient tolerated the procedure well and no complications were met. An Automated Tonometer was utilized to obtain bilateral orbital pressures. The pressures in the LEFT eye were found to be 13, 14 with an average of 13.5. The pressures in the RIGHT eye were found to be 14, 17 with an average of 15.5. Patient tolerated the procedure well and no complications were met. Medical Decision & Procedures Medications Administered Medications (Trade) Dose Ordered Sig/Hailey Route Start Time Stop Time Status Last Admin Dose Admin Ciprofloxacin HCl (Ciprofloxacin 0.3% Op Soln) 1 drops NOW STAT OP 12/27/16 21:20 12/27/16 21:22 DC 12/27/16 21:20 1 DROPS Oxycodone/ Acetaminophen (Percocet 5/ 325MG Home Pack) 1 homepack UD STAT PO 12/27/16 21:20 12/27/16 21:22 DC 12/27/16 21:20 1 HOMEPACK Medical Decision Patient was seen and evaluated as above. She presents to us today with right eye pain. Alcaine was instilled in the right eye, and alleviated her pain. Slit examination was performed, and revealed a slight corneal abrasion. She'll be given Ciloxan eyedrops for this. She appears stable for outpatient management. Pressures were obtained to rule out any emergent abnormality. She was given the first dose of Ciloxan eyedrops here, the remainder was sent home with the remainder of the pharmacy. She is to follow-up with ophthalmology tomorrow. She was educated upon worrisome symptoms which to return, had questions prior to discharge, and was discharged home in good condition. She was given Percocet for her pain. In the evaluation and treatment of this patient, the following differential diagnoses were considered: Corneal Abrasion, Conjunctivitis, Eye Contusion, Globe Injury, Orbital Floor Injury (Blowout Fracture), Corneal Ulcer, Keratitis , Herpes Zoster Opthalmic, Blepharitis, Orbital Cellulitis, Iritis, Scleritis/ Episcleritis, Uveitis, Temporal Arteritis, Subconjunctival Hemorrhage. [place] Drug Monitoring Program Search Results: patient reviewed within database, no issues identified Impression Primary Impression: Corneal abrasion Departure Information Dispostion Home / Self-Care Condition GOOD Prescriptions Ciprofloxacin Hcl (Ophth) (CILOXAN OPH) 0.3 % Mana 1 DROPS OP DIRECTED for 5 Days, #5 ML Prov: Donald Hill PA-C 12/27/16 Oxycodone/Acetaminophen 5MG/325MG (PERCOCET 5MG/325MG) Tab 1 TAB PO Q6 Y for Pain, #12 TAB For Initial Treatment Prov: Donald Hill PA-C 12/27/16 Referrals Laura Khoury MD (PCP) Phil Umaña M.D. Patient Instructions [facility] Additional Instructions You have been treated in the Emergency Department today for your Corneal Abrasion. You have been prescribed Percocet to be used for pain control. This is a narcotic medication. You cannot drive or consume alcohol while on this medicine. This medicine should only be used for pain that cannot be controlled with [id number] pain medicines. You have been prescribed Ciloxan eye drops. This is an antibiotic which will help to prevent an infection from developing in your affected eye. You should use 2 drops in the affected eye every 2 hours while awake for the first 2 days, then every 4 hours for the remaining 5 days. This is a total of a 7-day course for these antibiotic eye drops. For pain control, you can use the following [id number] medicines (if >12 yo): NO TYLENOL WITH THE PERCOCET. - Regular strength (200 mg/tab) Advil (ibuprofen) 1-2 tabs every 4-6 hours as needed. Do not exceed a dose of 3200 mg per day. You should relax in a quiet, dark place for the rest of the day. You should wear sunglasses while outside for the next few days until your eyes are not as sensitive to the light. You should schedule a follow-up appointment tomorrow with an Eye Doctor ( Food Mixer) for further evaluation and treatment of your Corneal Abrasion. (Dr. Umaña) Return to the Emergency Department if your current symptoms worsen despite treatment course outlined above, or if you develop any of the following symptoms : intractable pain, visual disturbances, loss of vision, increased redness, swelling, drainage, or if you develop a fever.
[2016-12-27 21:33] VITALS: BP 126/72; PULSE 74; O2SAT 98
== END 2016-12-27 21:34 | disposition home or self-care (01) ==
LOC: C.EDB 19:52 → C.EDD 21:34
DX: S05.02XA Injury of conjunctiva and corneal abrasion without foreign body, left eye, initial encounter (principal); X58.XXXA Exposure to other specified factors, initial encounter; Z84.1 Family history of disorders of kidney and ureter; Z82.0 Family history of epilepsy and other diseases of the nervous system

== ENCOUNTER 2017-02-01 09:50 | Emergency (ER) | payer OTHER ==
[~2017-02-01] VITALS: Ht 167.6 cm; Wt 78.8 kg
[~2017-02-01 09:50] MED LIST changes: +LINA72CA PO; -LITH300T2 PO; +LTHSR/300 PO; +MISCCAP80 PO; -MTR600X PO; -NORGTAB39 PO; +OXYC-57 PO; -OXYC-643 PO; -SACC250C11; +SPR28 PO; +TRAZ50TA35 PO
[2017-02-01 09:52] VITALS: PULSE 61; TEMP 36.8; O2SAT 100; Ht 167.6 cm; Wt 78.8 kg
[2017-02-01] MEDS ORDERED: BCPILLS PO (10:04)
[2017-02-01] MEDS ORDERED: SODIUM CHLORIDE 0.9% 1000ML 1,000 ML IV STA (10:17)
--- NOTE | 2017-02-01 11:00 | EMERGENCY ROOM VISIT NOTE ---
History Report prepared by Ofelia: Kely Gusman Under the Supervision of: Dr. Precious Grande M.D. First contact with patient: 10:08 Chief Complaint: HEAD INJURY (MINOR) Stated Complaint: HEAD INJURY History of Present Illness The patient is a 27 year old female who presents to the Emergency Room with complaints of an episode of a head injury occurring 4 days ago. The patient was riding her horse and was thrown off of it. She was wearing a helmet. She landed on her head and back. She denies any LOC. Initially she was having some neck pain, but that resolved the day after her accident. Since the incident she has been having intermittent headaches either in the front of her head or in the back left. She states that this morning she was having the most severe headache so she called her PCP and was advised to come to the ED for further evaluation. She does not have a history of headaches. The patient rates her current pain as an 8/10 in severity. She denies nausea, vomiting, trouble speaking, trouble walking, and urinary symptoms. Her LNMP was 5 days ago. She does report some lower abdominal pain. She did not hit her abdomen when she fell. She has a history of ovarian cysts. Source of History: patient Onset: 4 days ago Position: head Symptom Intensity: 8/10 Timing: other (episode) Modifying Factors (Worsening): other (head injury) Associated Symptoms: + headache, + abdominal pain, No LOC, No neck pain, No nausea, No vomiting, No urinary symptoms Review of Systems See HPI for pertinent positives & negatives. A total of 10 systems reviewed and were otherwise negative. Past Medical & Surgical Medical Problems: (1) Anorexia (2) Bipolar depression (3) Hemoperitoneum (4) Hemorrhage of right ovary (5) Ovarian cyst (6) Tourette disease Surgical Problems: (1) H/O bilateral breast reduction surgery (2) History of cholecystectomy Family History Cancer Heart disease Kidney disease Kidney stones Seizures Social History Smoking Status: Never Smoker Smokeless Tobacco Use: No Alcohol Use: occasionally Drug Use: none Housing Status: lives with roommate Occupation Status: student Current/Historical Medications Scheduled Atenolol (Tenormin), 25 MG PO DAILY Control Pills ( Control Pills), 1 TAB PO DAILY Lamotrigine (Lamictal Xr), 300 MG PO HS Linaclotide (Linzess), 72 MCG PO QPM [place] Carbonate ([place] Carbonate), 900 MG PO HS Probiotic Product (Probiotic), 1 CAP PO DAILY Sertraline (Zoloft), 100 MG PO HS Topiramate (Topamax), 100 MG PO HS Scheduled PRN Ondasetron Odt (Zofran Odt), 4 MG SL Q6H PRN for Nausea Trazodone Hcl (Trazodone), 50-100 MG PO HS PRN for Sleep Allergies Coded Allergies: Amoxicillin (Verified Allergy, Unknown, rash, 02/01/17) Nickel (Verified Allergy, Unknown, RASH/ITCHY, 02/01/17) Penicillins (Verified Allergy, Unknown, rash, 02/01/17) Sulfa Antibiotics (Verified Allergy, Unknown, rash, 02/01/17) Physical Exam Vital Signs Date Time Temp Pulse Resp B/P (MAP) Pulse Ox O2 Delivery O2 Flow Rate FiO2 02/01/17 13:43 96/47 02/01/17 12:05 89/50 02/01/17 09:52 36.8 61 18 103/64 100 Room Air Physical Exam Vital signs reviewed. General: Well-appearing 27 year old female, in no significant distress. HEENT: No scleral icterus, PERRLA, neck supple. Atraumatic. Cardiovascular: Regular rate and rhythm, no extra sounds. Pulmonary: Clear to auscultation bilaterally, normal work of breathing. Abdomen: Soft, LLQ tenderness, nondistended, positive bowel sounds. Musculoskeletal: Atraumatic, no peripheral edema. Neurologic: Patient awake alert and oriented x 3, full strength in all 4 extremities. Cranial nerves 2 through 12 grossly intact. Skin: Warm, dry, no rash Medical Decision & Procedures ER Provider Diagnostic Interpretation: Radiology results as stated below per my review and radiologist interpretation: EXAMINATION: PELVIC ULTRASOUND (transabdominal and endovaginal scanning) CLINICAL HISTORY: LLQ pain, ovarian cyst COMPARISON STUDY: September 28, 2016 FINDINGS: The uterus measured 7.2 x 2.8 x 5.2 cm. The endometrial stripe measured 3 mm. The right ovary measured 35 x 28 x 20 mm. The left ovary measured 50 x 27 x 35 mm. There is no ultrasonographic evidence of ovarian torsion. It should be noted that ovarian torsion can be present with normal Doppler ultrasonographic findings. There is trace left adnexal free fluid. There is a small amount of fluid in the cul-de-sac. IMPRESSION: Trace left adnexal free fluid and small amount of fluid in the cul-de-sac. Otherwise normal pelvic ultrasound. No uterine or ovarian masses identified. Electronically signed by: Sha Powell M.D. 02/01/2017 11:51 AM Dictated Date/Time: 02/01/2017 11:[address] HEAD WITHOUT CONTRAST (CT) CLINICAL HISTORY: Headache. Closed head injury. Fall from horse. COMPARISON STUDY: No previous studies for comparison. TECHNIQUE: Axial CT of the brain is performed from the vertex to the skull base. IV contrast was not administered for this examination. A dose lowering technique was utilized adhering to the principles of ALARA. CT DOSE: 690.05 mGycm FINDINGS: No intra or extra-axial mass lesions are visualized. There is no CT evidence of acute cortical infarction. There is no evidence of midline shift. There is no acute hemorrhage. No calvarial fractures are visualized. A tiny hyperdense focus within the right temporal region as visualized in image #10, likely represents calcification within the temporal horn choroid plexus. There is no evidence of pathologic ventricular dilatation. There is no evidence of acute sinusitis IMPRESSION: No acute intracranial findings Electronically signed by: Sha Powell M.D. 02/01/2017 10:57 AM Dictated Date/Time: 02/01/2017 10:55 AM Laboratory Results 02/01/17 10:35 Red Blood Count 4.42, Mean Corpuscular Volume 90.3, Mean Corpuscular Hemoglobin 27.8, Mean Corpuscular Hemoglobin Concent 30.8, Mean Platelet Volume 10.1, Neutrophils (%) (Auto) 60.3, Lymphocytes (%) (Auto) 28.6, Monocytes (%) (Auto) 6.5, Eosinophils (%) (Auto) 3.5, Basophils (%) (Auto) 1.0, Neutrophils # (Auto) 5.47, Lymphocytes # (Auto) 2.59, Monocytes # (Auto) 0.59, Eosinophils # (Auto) 0.32, Basophils # (Auto) 0.09 02/01/17 10:35 Test 02/01/17 10:20 02/01/17 10:35 Urine Color YELLOW Urine Appearance CLEAR (CLEAR) Urine pH 6.0 (4.5-7.5) Urine Specific [place] 1.016 (1.000-1.030) Urine Protein NEG (NEG) Urine Glucose (UA) NEG (NEG) Urine Ketones NEG (NEG) Urine Occult Blood NEG (NEG) Urine Nitrite NEG (NEG) Urine Bilirubin NEG (NEG) Urine Urobilinogen NEG (NEG) Urine Leukocyte Esterase NEG (NEG) Urine Test NEG (NEG) White Blood Count 9.07 K/uL (4.8-10.8) Red Blood Count 4.42 M/uL (4.2-5.4) Hemoglobin 12.3 g/dL (12.0-16.0) Hematocrit 39.9 % (37-47) Mean Corpuscular Volume 90.3 fL (80-100) Mean Corpuscular Hemoglobin 27.8 pg (25-34) Mean Corpuscular Hemoglobin Concent 30.8 g/dl (32-36) Platelet Count 343 K/uL (130-400) Mean Platelet Volume 10.1 fL (7.4-10.4) Neutrophils (%) (Auto) 60.3 % Lymphocytes (%) (Auto) 28.6 % Monocytes (%) (Auto) 6.5 % Eosinophils (%) (Auto) 3.5 % Basophils (%) (Auto) 1.0 % Neutrophils # (Auto) 5.47 K/uL (1.4-6.5) Lymphocytes # (Auto) 2.59 K/uL (1.2-3.4) Monocytes # (Auto) 0.59 K/uL (0.11-0.59) Eosinophils # (Auto) 0.32 K/uL (0-0.5) Basophils # (Auto) 0.09 K/uL (0-0.2) RDW Standard Deviation 42.3 fL (36.4-46.3) RDW Coefficient of Variation 12.8 % (11.5-14.5) Immature Granulocyte % (Auto) 0.1 % Immature Granulocyte # (Auto) 0.01 K/uL (0.00-0.02) Anion Gap 7.0 mmol/L (3-11) Est Creatinine Clear Calc Drug Dose 87.9 ml/min Estimated GFR () 88.2 Estimated GFR (Non- 76.1 BUN/Creatinine Ratio 9.3 (10-20) Calcium Level 9.3 mg/dl (8.5-10.1) Total Bilirubin 0.2 mg/dl (0.2-1) Direct Bilirubin < 0.1 mg/dl (0-0.2) Aspartate Amino Transf (AST/SGOT) 13 U/L (15-37) Alanine Aminotransferase (ALT/SGPT) 18 U/L (12-78) Alkaline Phosphatase 54 U/L (45-117) Total Protein 6.9 gm/dl (6.4-8.2) Albumin 3.2 gm/dl (3.4-5.0) Laboratory results per my review. Medications Administered Medications (Trade) Dose Ordered Sig/Hailey Route Start Time Stop Time Status Last Admin Dose Admin Sodium Chloride 1,000 ml @ 999 mls/hr Q1H1M STAT IV 02/01/17 10:17 02/01/17 11:17 DC 02/01/17 10:17 999 MLS/HR Acetaminophen 650 mg/Empty Bag 65 ml @ 260 mls/hr NOW STAT IV 02/01/17 11:11 02/01/17 11:25 DC 02/01/17 11:52 260 MLS/HR ED Course 1008: Past medical records reviewed. The patient was evaluated in room B5. A complete history and physical examination was performed. 1017: NSS 1000 ml @ 999 mls/hr IV 1111: Acetaminophen 65 ml @ 260 mls/hr IV 1135: I updated the patient on her results. 1329: I reassessed the patient at this time. She is feeling better and resting comfortably. I discussed the results and treatment plan with the patient. I answered all pertaining questions that she had. She expressed understanding and verbalized agreement. The patient will be discharged home. Medical Decision Differential diagnosis: Intracranial hemorrhage, intracranial mass, migraine headache, tension headache , sinusitis, meningitis, ovarian cysts, UTI, ectopic , kidney stone, intra-abdominal injury. This patient was evaluated and appeared to be in no significant distress. IV access was obtained and laboratory work was drawn. Patient was placed on the fuel oil clerk and found to be in a normal sinus rhythm. Patient was hydrated with normal saline solution. She initially declined the need for any analgesics. CT scan of the head reveals no evidence of acute intracranial abnormality. Ultrasound of pelvis reveals trace amount of free fluid. As the patient had no intra-abdominal injury, I feel this is likely physiologic. UA is negative. Patient was informed of the findings. She did receive IV Tylenol for complaints of headache. She had improvement of her symptoms and was discharged. She will follow-up with her physician for reevaluation return to the ER for worsening of symptoms or any medical concerns. Medication Reconcilliation Current Medication List: was personally reviewed by me Blood Pressure Screening Patient's blood pressure: Low blood pressure Likely related to medications. Impression Primary Impression: Closed head injury Additional Impression: LLQ abdominal pain Scribe Attestation The scribe's documentation has been prepared under my direction and personally reviewed by me in its entirety. I confirm that the note above accurately reflects all work, treatment, procedures, and medical decision making performed by me. Departure Information Dispostion Home / Self-Care Referrals No Doctor, Assigned (PCP) Forms HOME CARE DOCUMENTATION FORM, IMPORTANT VISIT INFORMATION Patient Instructions My [facility] Additional Instructions Diagnosis: Closed head injury, left lower quadrant abdominal pain Tylenol 650 mg every 6 hours as needed for pain. Drink plenty of clear fluids. Avoid high risk activity for head injury for at least 2 weeks. Follow-up with your primary care physician this week for reevaluation. Return to the emergency department for worsening of symptoms or any medical concerns. Problem Qualifiers Primary Impression: Closed head injury Encounter type: initial encounter Qualified Codes: S09.90XA - Unspecified injury of head, initial encounter
[2017-02-01 11:07] LABS: BASO ABS # 0.09 K/uL (0-0.2); COMPLETE YES; EOS % 3.5 %; HEMATOCRIT 39.9 % (37-47); IG% 0.1 %; LYMPH % 28.6 %; LYMPH ABS # 2.59 K/uL (1.2-3.4); MEAN CELL VOLUME 90.3 fL (80-100); MEAN CORPUSCULAR HEMOGLOBIN 27.8 pg (25-34); MEAN CORPUSCULAR HGB CONC 30.8 g/dl (32-36); MEAN PLATELET VOLUME 10.1 fL (7.4-10.4); MONO % 6.5 %; NEUT % 60.3 %; PLATELET COUNT 343 K/uL (130-400); RED BLOOD COUNT 4.42 M/uL (4.2-5.4); WHITE BLOOD COUNT 9.07 K/uL (4.8-10.8)
[2017-02-01] MEDS ORDERED: ACETAMINOPHEN IV 650 MG in EMPTY BAG 0 ML IV STA (11:11)
[2017-02-01 11:26] LABS: ALT/SGPT 18 U/L (12-78); BLOOD UREA NITROGEN 9 mg/dl (7-18); BUN/CREATININE RATIO 9.3 (10-20); CALCIUM 9.3 mg/dl (8.5-10.1); CARBON DIOXIDE 23 mmol/L (21-32); CHLORIDE 112 mmol/L (98-107); GLUCOSE 84 mg/dl (70-99); POTASSIUM 3.7 mmol/L (3.5-5.1); SODIUM 142 mmol/L (136-145)
[2017-02-01 11:29] LABS: ALKALINE PHOSPHATASE 54 U/L (45-117); AST/SGOT 13 U/L (15-37)
[2017-02-01] MEDS ORDERED: ACETAMINOPHEN 1000 MG/100 ML IV IV ONE (11:37)
--- NOTE | 2017-02-01 11:52 | DIAGNOSTIC IMAGING REPORT ---
EXAMINATION: PELVIC ULTRASOUND (transabdominal and endovaginal scanning) CLINICAL HISTORY: LLQ pain, ovarian cyst COMPARISON STUDY: September 28, 2016 FINDINGS: The uterus measured 7.2 x 2.8 x 5.2 cm. The endometrial stripe measured 3 mm. The right ovary measured 35 x 28 x 20 mm. The left ovary measured 50 x 27 x 35 mm. There is no ultrasonographic evidence of ovarian torsion. It should be noted that ovarian torsion can be present with normal Doppler ultrasonographic findings. There is trace left adnexal free fluid. There is a small amount of fluid in the cul-de-sac. IMPRESSION: Trace left adnexal free fluid and small amount of fluid in the cul-de-sac. Otherwise normal pelvic ultrasound. No uterine or ovarian masses identified. Electronically signed by: Sha Powell M.D. 02/01/2017 11:51 AM Dictated Date/Time: 02/01/2017 11:49 AM
[2017-02-01 12:46] LABS: URINE APPEARANCE CLEAR (CLEAR); URINE BILIRUBIN NEG (NEG); URINE COLOR YELLOW; URINE NITRITE NEG (NEG); URINE SPECIFIC GRAVITY 1.016 (1.000-1.030); UROBILINOGEN NEG (NEG); ZZUR CULT IF INDIC CLEAN CATCH NO
[2017-02-01 12:48] LABS: MANUAL MICROSCOPIC REQUIRED? NO; REVIEW REQ? NO
[2017-02-01 13:43] VITALS: BP 96/47
== END 2017-02-01 13:44 | disposition home or self-care (01) ==
LOC: C.EDB 09:52
DX: S09.90XA Unspecified injury of head, initial encounter (principal); V80.010A Animal-rider injured by fall from or being thrown from horse in noncollision accident, initial encounter; R10.32 Left lower quadrant pain; N83.209 Unspecified ovarian cyst, unspecified side; R63.0 Anorexia; F31.9 Bipolar disorder, unspecified; F95.2 Tourette's disorder; Z79.3 Long term (current) use of hormonal contraceptives; Z82.0 Family history of epilepsy and other diseases of the nervous system; Z84.1 Family history of disorders of kidney and ureter

== ENCOUNTER → 2017-04-02 | Outpatient (CLI) | payer OTHER ==
[~2017-04-02] MED LIST changes: +BCPILLS PO; -OXYC-57 PO; -SPR28 PO
[2017-04-02 09:36] LABS: BASO % 0.7 %; BASO ABS # 0.08 K/uL (0-0.2); COMPLETE YES; EOS % 3.9 %; HEMATOCRIT 41.1 % (37-47); IG% 0.2 %; LYMPH % 21.5 %; LYMPH ABS # 2.56 K/uL (1.2-3.4); MEAN CORPUSCULAR HEMOGLOBIN 28.8 pg (25-34); MEAN CORPUSCULAR HGB CONC 32.4 g/dl (32-36); MEAN PLATELET VOLUME 10.4 fL (7.4-10.4); MONO % 6.8 %; NEUT % 66.9 %; PLATELET COUNT 361 K/uL (130-400); RED BLOOD COUNT 4.62 M/uL (4.2-5.4); WHITE BLOOD COUNT 11.92 K/uL (4.8-10.8)
[2017-04-02 09:57] LABS: BLOOD UREA NITROGEN 9 mg/dl (7-18); CARBON DIOXIDE 23 mmol/L (21-32); CHLORIDE 112 mmol/L (98-107); CREATININE 1.07 mg/dl (0.60-1.20); POTASSIUM 3.6 mmol/L (3.5-5.1); SODIUM 141 mmol/L (136-145)
--- NOTE | 2017-04-09 07:15 | CODING QUERY NO DIAGNOSIS ---
: 1990 TREATMENT RENDERED WITHOUT A DIAGNOSIS To promote full compliance with coding requirements relating to patient care, physician participation is requested in all cases of pen ruler operator uncertainty. Please assist us with providing a diagnosis/symptom for the test(s) below: A diagnosis/symptom was not documented on your Order. A valid diagnosis/symptom is required to bill all insurances. Please remember that we are unable to code a diagnosis of rule out, probable, possible, questionable, or suspected. Tests that require a diagnosis: DOS: 04/02/17 * CBC W/AUTO DIFFERENTIAL DIAGNOSIS: * BUN DIAGNOSIS: * CREATININE DIAGNOSIS: * ELECTROLYTES DIAGNOSIS: * TSH DIAGNOSIS: * LITHIUM DIAGNOSIS: * LAMICTAL DIAGNOSIS: Provider Signature: Date: Thank you Vannessa Carr Health Information Management Once completed, please kindly fax back to [phone] For questions please call [phone]
== END | disposition home or self-care (01) ==
LOC: C.LAB1850 08:23
PROVIDERS: ATTEND Psychiatry & Neurology Psychiatry
DX: Z01.89 Encounter for other specified special examinations (principal)

== ENCOUNTER → 2017-06-09 | Outpatient (CLI) | payer OTHER ==
[2017-06-09 17:22] LABS: LUTEINIZING HORMONE 3.28 IU/L; PROLACTIN 9.7 ng/mL
[2017-06-09 17:23] LABS: FOLLICLE STIMULAT HORMONE 1.3 IU/L
== END | disposition home or self-care (01) ==
LOC: C.LAB1850 14:55
PROVIDERS: ATTEND Urology
DX: Z00.01 Encounter for general adult medical examination with abnormal findings (principal); R10.2 Pelvic and perineal pain; N94.810 Vulvar vestibulitis; N94.818 Other vulvodynia

== ENCOUNTER 2017-06-22 05:36 | Emergency (ER) | payer OTHER ==
[~2017-06-22] VITALS: Ht 167.6 cm; Wt 79.0 kg
[2017-06-22 05:39] VITALS: TEMP 36.5; Ht 167.6 cm; Wt 79.0 kg
[2017-06-22] MEDS ORDERED: CYCLOBENZAPRINE HCL 10 MG TAB PO STA (05:59)
[2017-06-22] MEDS ORDERED: KETOROLAC TROMETHAMINE 60 MG/2 ML VIAL IM STA (05:59)
[2017-06-22] MEDS ORDERED: LISD30CA4 PO (06:05)
--- NOTE | 2017-06-22 06:11 | EMERGENCY ROOM VISIT NOTE ---
History First contact with patient: 05:46 Chief Complaint: CHEST PAIN Stated Complaint: UPPER LEFT CHEST PAIN-MUSCLE PAIN History of Present Illness The patient is a 27 year old female who presents to the Emergency Room with complaints of pain in her left upper chest. The patient states that she woke up this morning and turned her head quickly to the left side and developed a sudden onset of pain in the left side of the chest. She states it is worse with movement, pressing on the area and taking a deep breath. She is having difficulty fully moving her left arm due to the pain. She rates the discomfort a 10/10. She applied icy hot and took Tylenol without relief. She denies shortness of breath. There is no radiation of the pain. Review of Systems A complete 10 point review of systems was reviewed with the patient with pertinent positives and negatives as per history of present illness. All else were negative. Past Medical/Surgical History Medical Problems: (1) Anorexia (2) Bipolar depression (3) Hemoperitoneum (4) Hemorrhage of right ovary (5) Ovarian cyst (6) Tourette disease Surgical Problems: (1) H/O bilateral breast reduction surgery (2) History of cholecystectomy Family History Cancer Heart disease Kidney disease Kidney stones Seizures Social History Smoking Status: Never Smoker Alcohol Use: occasionally Drug Use: none Housing Status: lives with roommate Occupation Status: student Current/Historical Medications Scheduled Atenolol (Tenormin), 25 MG PO DAILY Control Pills ( Control Pills), 1 TAB PO DAILY Cyclobenzaprine Hcl (Flexeril), 10 MG PO TID Lamotrigine (Lamictal Xr), 300 MG PO HS Lisdexamfetamine Dimesylate (Vyvanse), 30 MG PO DAILY [place] Carbonate ([place] Carbonate), 900 MG PO HS Probiotic Product (Probiotic), 1 CAP PO DAILY Sertraline (Zoloft), 100 MG PO HS Topiramate (Topamax), 100 MG PO HS Scheduled PRN Ondasetron Odt (Zofran Odt), 4 MG SL Q6H PRN for Nausea Trazodone Hcl (Trazodone), 50-100 MG PO HS PRN for Sleep Physical Exam Vital Signs Date Time Temp Pulse Resp B/P (MAP) Pulse Ox O2 Delivery O2 Flow Rate FiO2 06/22/17 06:52 56 16 106/71 100 06/22/17 05:54 Room Air 06/22/17 05:53 64 06/22/17 05:39 36.5 73 20 116/69 100 Room Air Physical Exam VITALS: Vitals are noted on the nurse's note and reviewed by myself. Vital signs stable. GENERAL: This is a 27-year-old female, in no acute distress, nondiaphoretic, well-developed well-nourished. HEART: Regular rate and rhythm without murmurs gallops or rubs. LUNGS: Clear to auscultation bilaterally without wheezes, rales or rhonchi. MUSCULOSKELETAL: There is reproducible tenderness to palpation along the left sternal border with a point of focal tenderness. Full range of motion of bilateral upper extremities. Strength 5/5 bilateral upper extremities. NEURO: Patient was alert and oriented to person place and time. Medical Decision & Procedures Medications Administered Medications (Trade) Dose Ordered Sig/Hailey Route Start Time Stop Time Status Last Admin Dose Admin Ketorolac Tromethamine (Toradol Inj) 60 mg NOW STAT IM 06/22/17 05:59 06/22/17 06:01 DC 06/22/17 06:08 60 MG Cyclobenzaprine HCl (Flexeril Tab) 10 mg NOW STAT PO 06/22/17 05:59 06/22/17 06:01 DC 06/22/17 06:08 10 MG ECG Indication: chest pain Rate (beats per minute): 59 Rhythm: sinus bradycardia Findings: no acute ischemic change, no ectopy Comparison ECG Date: no prior available Medical Decision Differential diagnosis includes acute coronary syndrome, pulmonary embolism, pneumothorax, pericarditis, myocarditis, endocarditis, anxiety, musculoskeletal pain, GERD, costochondritis, pneumonia, among others. The patient is a 27-year-old female who presents today complaining of left upper chest pain after turning her head quickly while in bed today. By history and physical exam, this pain seems to be musculoskeletal. It is worse with movement of her arm. It is reproducible to palpation on exam. Patient was treated with Toradol and Flexeril with improvement of her discomfort. EKG was performed and shows no ischemic changes. The patient will be given a prescription for Flexeril and was advised to take [id number] medications for her pain at home. Based on the patient's presentation and work up, I feel the patient is stable for outpatient treatment. The patient was educated to return to the emergency department for any worsening of their current condition or new/concerning symptoms. She will follow up with her PCP. Medication Reconcilliation Current Medication List: was personally reviewed by me Blood Pressure Screening Patient's blood pressure: Normal blood pressure Impression Primary Impression: Chest wall pain Departure Information Dispostion Home / Self-Care Condition GOOD Prescriptions Cyclobenzaprine Hcl (FLEXERIL) 10 Mg Tab 10 MG PO TID for 3 Days, #9 TAB Prov: Julia Mcdermott .LLOYD 06/22/17 Referrals No Doctor, Assigned (PCP) Patient Instructions My [facility] Additional Instructions You have been treated in the Emergency Department for Chest Pain. You have been prescribed Flexeril (cyclobenzaprine) 1-2 tabs orally, three times per day. Do NOT exceed 30 mg (6 tabs) per day. Take your first dose at bedtime as it can make you drowsy. Always take all medications as prescribed. Ibuprofen, 600-800 mg every 6 hours for the next 1-2 days for pain. For pain control, you can use the following [id number] medicines (if >12 yo): - Regular strength (325mg/tab) Tylenol (acetaminophen) 2 tabs every 4-6 hours as needed. Do not exceed 12 tablets in a 24 hour period. Avoid taking more than 4 grams (4000 mg) of Tylenol per day. This includes any other sources of acetaminophen you may take on a regular basis. If this is an acute injury, ice can be applied to the area of pain for the first 3 days to help decrease pain and inflammation. After the first 3 days, a heating pad can be used over the area for continued soothing relief. Follow up with your primary care provider if symptoms persist. Return to the ED with any worsening or new/concerning symptoms.
[2017-06-22] MEDS ORDERED: CYCL10TA6 PO (06:40)
[2017-06-22 06:52] VITALS: BP 106/71; PULSE 56; O2SAT 100
== END 2017-06-22 06:54 | disposition home or self-care (01) ==
LOC: C.EDB 05:38 → C.EDA 06:54
DX: R07.89 Other chest pain (principal); R00.1 Bradycardia, unspecified; F95.2 Tourette's disorder; F31.9 Bipolar disorder, unspecified; Z79.3 Long term (current) use of hormonal contraceptives; Z79.899 Other long term (current) drug therapy; Z87.42 Personal history of other diseases of the female genital tract

== ENCOUNTER → 2017-07-19 | Outpatient (CLI) | payer OTHER ==
[~2017-07-19] MED LIST changes: -LINA72CA PO; +LISD30CA4 PO
[2017-07-19 18:40] LABS: FOLLICLE STIMULAT HORMONE 7.47 IU/L
[2017-07-23 07:38] LABS: ALBUMIN 4.1 g/dL (3.6-5.1)
== END | disposition home or self-care (01) ==
LOC: C.LAB1850 15:49
PROVIDERS: ATTEND Urology
DX: N95.2 Postmenopausal atrophic vaginitis (principal); N94.810 Vulvar vestibulitis; N94.818 Other vulvodynia

== ENCOUNTER → 2017-07-27 | Outpatient (CLI) | payer OTHER | END | disposition home or self-care (01) | LOC: C.PAPS 17:10 | PROVIDERS: ATTEND Physician Assistant | DX: Z01.419 Encounter for gynecological examination (general) (routine) without abnormal findings (principal) ==

== ENCOUNTER → 2017-08-16 | Outpatient (CLI) | payer OTHER ==
[2017-08-16 17:14] LABS: FOLLICLE STIMULAT HORMONE 6.97 IU/L; LUTEINIZING HORMONE 10.7 IU/L
== END | disposition home or self-care (01) ==
LOC: C.LAB1850 15:54
PROVIDERS: ATTEND Urology
DX: N95.2 Postmenopausal atrophic vaginitis (principal); N94.810 Vulvar vestibulitis; N94.818 Other vulvodynia

== ENCOUNTER 2017-09-05 06:42 | Emergency (ER) | payer OTHER ==
[~2017-09-05] VITALS: Ht 167.6 cm; Wt 77.1 kg
[2017-09-05 06:47] VITALS: Ht 167.6 cm; Wt 77.1 kg
[2017-09-05] MEDS ORDERED: CYAN100T PO (07:18)
[2017-09-05] MEDS ORDERED: TEST30SO TOP (07:18)
[2017-09-05 07:31] LABS: BASO % 0.5 %; BASO ABS # 0.05 K/uL (0-0.2); EOS % 3.6 %; HEMATOCRIT 38.7 % (37-47); HEMOGLOBIN 12.7 g/dL (12.0-16.0); IG# 0.02 K/uL (0.00-0.02); LYMPH % 26.3 %; LYMPH ABS # 2.88 K/uL (1.2-3.4); MEAN CELL VOLUME 89.2 fL (80-100); MEAN CORPUSCULAR HEMOGLOBIN 29.3 pg (25-34); MEAN CORPUSCULAR HGB CONC 32.8 g/dl (32-36); MEAN PLATELET VOLUME 10.2 fL (7.4-10.4); MONO % 8.2 %; NEUT % 61.2 %; NEUT ABS # 6.71 K/uL (1.4-6.5); PLATELET COUNT 367 K/uL (130-400); RED CELL DISTRIBUTION WIDTH CV 13.6 % (11.5-14.5); RED CELL DISTRIBUTION WIDTH SD 44.8 fL (36.4-46.3); WHITE BLOOD COUNT 10.96 K/uL (4.8-10.8)
[2017-09-05 07:37] LABS: INR 0.9 (0.9-1.1); PTT PATIENT 27.6 SECONDS (21.0-31.0)
--- NOTE | 2017-09-05 07:37 | DIAGNOSTIC IMAGING REPORT ---
CHEST ONE VIEW PORTABLE CLINICAL HISTORY: 27 years-old Female presenting with Evaluate Fever/Sepsis. TECHNIQUE: Portable upright AP view of the chest was obtained. COMPARISON: None. FINDINGS: Cardiomediastinal silhouette normal. Lungs and pleural spaces clear. Osseous structures normal. Upper abdomen normal. IMPRESSION: 1. No acute cardiopulmonary disease. Electronically signed by: Antwon Savage M.D. 09/05/2017 7:35 AM Dictated Date/Time: 09/05/2017 7:35 AM
[2017-09-05 07:43] LABS: ALBUMIN 3.1 gm/dl (3.4-5.0); ALT/SGPT 14 U/L (12-78); AST/SGOT 11 U/L (15-37); BLOOD UREA NITROGEN 11 mg/dl (7-18); CALCIUM 8.5 mg/dl (8.5-10.1); CARBON DIOXIDE 23 mmol/L (21-32); CREATININE 1.17 mg/dl (0.60-1.20); GLUCOSE 91 mg/dl (70-99); LIPASE 323 U/L (73-393); POTASSIUM 3.4 mmol/L (3.5-5.1); SODIUM 142 mmol/L (136-145)
[2017-09-05 07:48] LABS: ALKALINE PHOSPHATASE 49 U/L (45-117); CKMB 0.5 ng/ml (0.5-3.6); TOTAL PROTEIN 6.7 gm/dl (6.4-8.2)
[2017-09-05 09:30] VITALS: BP 105/68; PULSE 61; O2SAT 99
--- NOTE | 2017-09-05 09:39 | EMERGENCY ROOM VISIT NOTE ---
History Report prepared by [place]: Marline Meyer Under the Supervision of: Dr. Carlos Alberto Lerner D.O. First contact with patient: 06:59 Chief Complaint: CHEST PAIN Stated Complaint: CHEST PAIN-PINS +NEEDLES LIKE,DIZZY History of Present Illness The patient is a 27 year old female who presents to the Emergency Room with complaints of intermittent chest pain for the past 2 weeks. She describes the pain as feeling like "pins and needles" and rates her discomfort as a 10/10 in severity. She takes Atenolol for a history of an "extra beat". She reports for the past 1 week, she has experienced dizziness and nausea. She saw a local urgent care clinic but states nothing was found. She notes she was placed on Testosterone cream for low Testosterone levels due to a history of severe anorexia, about 3 months ago, and states her dosage was changed recently by Dr. Antwon Clark at the [facility]. She has developed "severe abdominal pain" since starting the Testosterone cream. The patient denies any shortness of breath. Source of History: patient Onset: 2 weeks [employer] Position: chest Symptom Intensity: 10/10 Quality: other ("pins and needles") Timing: intermittent Associated Symptoms: + nausea, + abdominal pain, No SOB Review of Systems See HPI for pertinent positives & negatives. A total of 10 systems reviewed and were otherwise negative. Past Medical & Surgical Medical Problems: (1) Anorexia (2) Bipolar depression (3) Hemoperitoneum (4) Hemorrhage of right ovary (5) Ovarian cyst (6) Tourette disease Surgical Problems: (1) H/O bilateral breast reduction surgery (2) History of cholecystectomy Family History Cancer Heart disease Kidney disease Kidney stones Seizures Social History Smoking Status: Never Smoker Alcohol Use: occasionally Drug Use: none Marital Status: single Housing Status: lives with roommate Occupation Status: student Current/Historical Medications Scheduled Atenolol (Tenormin), 25 MG PO DAILY Control Pills ( Control Pills), 1 TAB PO DAILY Cyanocobalamin (Vitamin B-12), 1 TAB PO DAILY Lamotrigine (Lamictal Xr), 300 MG PO HS Lisdexamfetamine Dimesylate (Vyvanse), 30 MG PO DAILY [place] Carbonate ([place] Carbonate), 900 MG PO HS Probiotic Product (Probiotic), 1 CAP PO DAILY Sertraline (Zoloft), 100 MG PO HS Testosterone (Testosterone Topical Solu), 1 APPLN TOP DAILY Topiramate (Topamax), 100 MG PO HS Scheduled PRN Ondasetron Odt (Zofran Odt), 4 MG SL Q6H PRN for Nausea Trazodone Hcl (Trazodone), 50-100 MG PO HS PRN for Sleep Allergies Coded Allergies: Amoxicillin (Verified Allergy, Unknown, rash, 09/05/17) Nickel (Verified Allergy, Unknown, RASH/ITCHY, 09/05/17) Penicillins (Verified Allergy, Unknown, rash, 09/05/17) Sulfa Antibiotics (Verified Allergy, Unknown, rash, 09/05/17) Physical Exam Vital Signs Date Time Temp Pulse Resp B/P (MAP) Pulse Ox O2 Delivery O2 Flow Rate FiO2 09/05/17 09:30 61 16 105/68 99 Room Air 09/05/17 09:00 66 15 114/69 98 Room Air 09/05/17 08:26 66 19 106/71 95 09/05/17 08:00 64 20 114/71 100 09/05/17 07:16 71 20 119/65 100 Room Air 09/05/17 06:56 67 09/05/17 06:55 Room Air 09/05/17 06:52 100 Room Air 09/05/17 06:47 72 18 124/51 100 Room Air Physical Exam CONSTITUTIONAL/VITAL SIGNS: Reviewed / noted above. GENERAL: Non-toxic in appearance. INTEGUMENTARY: Warm, dry, and [place]. HEAD: Normocephalic. EYES: without scleral icterus or trauma. ENT/OROPHARYNX: clear and moist. LYMPHADENOPATHY/NECK: Is supple without lymphadenopathy or meningismus. RESPIRATORY: Lungs clear and equal. CARDIOVASCULAR: Regular rate and rhythm. GI/ABDOMEN: Soft and nontender. No organomegaly or pulsatile mass. No rebound or guarding. Normal bowel sounds. EXTREMITIES: Warm and well perfused. BACK: No CVA tenderness. NEUROLOGICAL: Intact without focal deficits. PSYCHIATRIC: normal affect. MUSCULOSKELETAL: Normally developed with good muscle tone. Medical Decision & Procedures ER Provider Diagnostic Interpretation: Radiology results as stated below per my review and radiologist interpretation: CHEST ONE VIEW PORTABLE CLINICAL HISTORY: 27 years-old Female presenting with Evaluate Fever/Sepsis. TECHNIQUE: Portable upright AP view of the chest was obtained. COMPARISON: None. FINDINGS: Cardiomediastinal silhouette normal. Lungs and pleural spaces clear. Osseous structures normal. Upper abdomen normal. IMPRESSION: 1. No acute cardiopulmonary disease. Electronically signed by: Antwon Savage M.D. 09/05/2017 7:35 AM Laboratory Results 09/05/17 06:55 Red Blood Count 4.34, Mean Corpuscular Volume 89.2, Mean Corpuscular Hemoglobin 29.3, Mean Corpuscular Hemoglobin Concent 32.8, Mean Platelet Volume 10.2, Neutrophils (%) (Auto) 61.2, Lymphocytes (%) (Auto) 26.3, Monocytes (%) (Auto) 8.2, Eosinophils (%) (Auto) 3.6, Basophils (%) (Auto) 0.5, Neutrophils # (Auto) 6.71, Lymphocytes # (Auto) 2.88, Monocytes # (Auto) 0.90, Eosinophils # (Auto) 0.40, Basophils # (Auto) 0.05 09/05/17 06:55 Test 09/05/17 06:55 09/05/17 07:15 White Blood Count 10.96 K/uL (4.8-10.8) Red Blood Count 4.34 M/uL (4.2-5.4) Hemoglobin 12.7 g/dL (12.0-16.0) Hematocrit 38.7 % (37-47) Mean Corpuscular Volume 89.2 fL (80-100) Mean Corpuscular Hemoglobin 29.3 pg (25-34) Mean Corpuscular Hemoglobin Concent 32.8 g/dl (32-36) Platelet Count 367 K/uL (130-400) Mean Platelet Volume 10.2 fL (7.4-10.4) Neutrophils (%) (Auto) 61.2 % Lymphocytes (%) (Auto) 26.3 % Monocytes (%) (Auto) 8.2 % Eosinophils (%) (Auto) 3.6 % Basophils (%) (Auto) 0.5 % Neutrophils # (Auto) 6.71 K/uL (1.4-6.5) Lymphocytes # (Auto) 2.88 K/uL (1.2-3.4) Monocytes # (Auto) 0.90 K/uL (0.11-0.59) Eosinophils # (Auto) 0.40 K/uL (0-0.5) Basophils # (Auto) 0.05 K/uL (0-0.2) RDW Standard Deviation 44.8 fL (36.4-46.3) RDW Coefficient of Variation 13.6 % (11.5-14.5) Immature Granulocyte % (Auto) 0.2 % Immature Granulocyte # (Auto) 0.02 K/uL (0.00-0.02) Prothrombin Time 9.8 SECONDS (9.0-12.0) Prothromb Time International Ratio 0.9 (0.9-1.1) Activated Partial Thromboplast Time 27.6 SECONDS (21.0-31.0) Partial Thromboplastin Ratio 1.1 Anion Gap 7.0 mmol/L (3-11) Est Creatinine Clear Calc Drug Dose 74.4 ml/min Estimated GFR () 72.9 Estimated GFR (Non- 62.9 BUN/Creatinine Ratio 9.3 (10-20) Calcium Level 8.5 mg/dl (8.5-10.1) Total Bilirubin 0.2 mg/dl (0.2-1) Direct Bilirubin < 0.1 mg/dl (0-0.2) Aspartate Amino Transf (AST/SGOT) 11 U/L (15-37) Alanine Aminotransferase (ALT/SGPT) 14 U/L (12-78) Alkaline Phosphatase 49 U/L (45-117) Total Creatine Kinase 43 U/L (26-192) Creatine Kinase MB 0.5 ng/ml (0.5-3.6) Creatine Kinase MB Ratio 1.2 (0-3.0) Troponin I < 0.015 ng/ml (0-0.045) Total Protein 6.7 gm/dl (6.4-8.2) Albumin 3.1 gm/dl (3.4-5.0) Lipase 323 U/L (73-393) Urine Color YELLOW Urine Appearance CLOUDY (CLEAR) Urine pH 8.0 (4.5-7.5) Urine Specific [place] 1.014 (1.000-1.030) Urine Protein NEG (NEG) Urine Glucose (UA) NEG (NEG) Urine Ketones NEG (NEG) Urine Occult Blood NEG (NEG) Urine Nitrite NEG (NEG) Urine Bilirubin NEG (NEG) Urine Urobilinogen NEG (NEG) Urine Leukocyte Esterase NEG (NEG) Urine WBC (Auto) 1-5 /hpf (0-5) Urine RBC (Auto) 0-4 /hpf (0-4) Urine Hyaline Casts (Auto) 1-5 /lpf (0-5) Urine Epithelial Cells (Auto) >30 /lpf (0-5) Urine Bacteria (Auto) NEG (NEG) Laboratory results as stated above per my review. ECG Per My Interpretation Indication: chest pain Rate (beats per minute): 59 Rhythm: sinus bradycardia Findings: no ectopy, other (No ST elevation) ED Course 0658: Previous medical records were reviewed. The patient was evaluated in room B4. A complete history and physical examination was performed. 0940: On reevaluation, the patient is feeling better and resting comfortably. I discussed the results and findings with the patient. She verbalized agreement of the treatment plan. She was discharged home. Medical Decision Differential includes acute coronary syndrome, myocardial infarction, CVA, TIA, anemia, infection, pneumonia, UTI, pyelonephritis, poor nutrition, dehydration, electrolyte disturbance,hypoglycemia. This is a 27-year-old female who presents to the ED with a chief complaint of intermittent chest pain for the past week. The patient states that her symptoms seem to be worse at night. She states that she had a pins and needles sensation in her chest last night that she thought might be related to anxiety. She also had about 5-10 minutes where her legs and arms felt numb and tingly. The patient states that there are some nights that she only sleeps 2-3 hours a night and then she will take trazodone sleep for 12 hours. She is on a testosterone cream for sexual dysfunction. The patient states that she has some mild abdominal pain that has been present since being placed on the testosterone. Her physical exam was normal. She is currently not having the paresthesias. She does not have any chest pain or abdominal pain. Her CBC is unremarkable. Complete metabolic panel was unremarkable, troponin is negative, lipase is negative, urine did not show infection and an EKG shows a sinus bradycardia at a rate of 59. The patient was told the results of the test. She is felt to be stable for discharge and outpatient follow-up. Medication Reconcilliation Current Medication List: was personally reviewed by me Blood Pressure Screening Patient's blood pressure: Normal blood pressure Blood pressure disposition: Did not require urgent referral Impression Primary Impression: Paresthesia Scribe Attestation The scribe's documentation has been prepared under my direction and personally reviewed by me in its entirety. I confirm that the note above accurately reflects all work, treatment, procedures, and medical decision making performed by me. Departure Information Dispostion Home / Self-Care Referrals No Doctor, Assigned (PCP) Patient Instructions My [facility] Additional Instructions Follow-up with your doctor for further care and evaluation in 1-2 days. Return to the emergency department for worsening or new symptoms or any concerns. You have been examined and treated today on an emergency basis only. This is not a substitute for, or an effort to provide, complete comprehensive medical care. It is impossible to recognize and treat all injuries or illnesses in a single emergency department visit. It is therefore important that you follow up closely with your doctor. Call as soon as possible for an appointment.
== END 2017-09-05 10:10 | disposition home or self-care (01) ==
LOC: C.EDB 06:43
DX: R20.2 Paresthesia of skin (principal); R63.0 Anorexia; F31.9 Bipolar disorder, unspecified; F95.2 Tourette's disorder; Z88.8 Allergy status to other drugs, medicaments and biological substances; Z88.0 Allergy status to penicillin; Z88.2 Allergy status to sulfonamides

== ENCOUNTER → 2017-09-07 | Outpatient (CLI) | payer OTHER ==
[~2017-09-07] MED LIST changes: +CYAN100T PO; +TEST30SO TOP
[2017-09-07 15:35] LABS: HEMOGLOBIN 12.9 g/dL (12.0-16.0); MEAN CELL VOLUME 89.7 fL (80-100); MEAN CORPUSCULAR HEMOGLOBIN 28.9 pg (25-34); MEAN CORPUSCULAR HGB CONC 32.3 g/dl (32-36); MEAN PLATELET VOLUME 10.2 fL (7.4-10.4); PLATELET COUNT 354 K/uL (130-400); RED CELL DISTRIBUTION WIDTH CV 13.7 % (11.5-14.5); RED CELL DISTRIBUTION WIDTH SD 45.1 fL (36.4-46.3); WHITE BLOOD COUNT 11.27 K/uL (4.8-10.8)
[2017-09-07 16:17] LABS: FOLLICLE STIMULAT HORMONE 5.8 IU/L; LUTEINIZING HORMONE 7.49 IU/L
== END | disposition home or self-care (01) ==
LOC: C.LAB1850 14:15
PROVIDERS: ATTEND Urology
DX: N94.810 Vulvar vestibulitis (principal); N94.818 Other vulvodynia; R10.2 Pelvic and perineal pain

== ENCOUNTER → 2017-09-24 | Outpatient (CLI) | payer OTHER ==
[2017-09-24 17:56] LABS: ALBUMIN 3.6 gm/dl (3.4-5.0); ALKALINE PHOSPHATASE 58 U/L (45-117); ALT/SGPT 13 U/L (12-78); AST/SGOT 11 U/L (15-37); TOTAL PROTEIN 7.8 gm/dl (6.4-8.2)
== END | disposition home or self-care (01) ==
LOC: C.LAB1850 17:12
PROVIDERS: ATTEND Urology
DX: R10.2 Pelvic and perineal pain (principal)